=== PATIENT | male | born 1995 | race Caucasian/White ===

== ENCOUNTER 2018-02-16 17:08 | Emergency (ER) | payer SELFPAY ==
[~2018-02-16] VITALS: Ht 188 cm; Wt 90.9 kg
[2018-02-16] MEDS ORDERED: BUPIVACAINE HCL/PF 0.25% 10 ML VIAL INJ ONE (19:00)
[2018-02-16 19:33] VITALS: BP 121/73
== END 2018-02-16 20:37 | disposition home or self-care (01) ==
LOC: EMS 17:11
DX: S01.85XA Open bite of other part of head, initial encounter (principal); F17.210 Nicotine dependence, cigarettes, uncomplicated; Z88.0 Allergy status to penicillin; W54.0XXA Bitten by dog, initial encounter; Y93.89 Activity, other specified; Y92.89 Other specified places as the place of occurrence of the external cause; Y99.8 Other external cause status
CPT/HCPCS: 12013; 99283; 99406; J3490